=== PATIENT | female | born 1950 | race Caucasian/White ===

== ENCOUNTER → 2016-10-20 | Outpatient (CLI) | payer MEDICARE, MEDICAID ==
[~2016-10-20] VITALS: Ht 149.9 cm; Wt 47.2 kg
[~2016-10-20] MED LIST: ACET50TAOT PO; BENA25CA2 PO; BISA5TAB7 PO; CALCTAB23 PO; FOSA70TA PO; ICY16LIQ TOP; IPRASOL4 INH; LEG1TAB PO; LUNE3TAB48 PO; METO5TAB2 PO; NEXI40CA PO; NS 1,000 ML IV SCH; PEPT262S PO; PROPOFOL 200 MG/20 ML VIAL As Ordered ONE; REME30TA PO; SENN-23 PO; SIMV20TA2 PO; SING10TA32 PO; SPIR1CAP INH; SYMB16INH INH; TRAM50TA2 PO; VITA500S3 SL
--- NOTE | 2016-10-20 10:54 | ROOR ---
Patient Name: Mariah Hernandez Procedure Date: 10/20/2016 10:40 AM Date of : 1950 Age: 66 Room: M OP Gender: Female Note Status: Finalized Procedure: Upper GI endoscopy Indications: Epigastric abdominal pain, Gastroparesis, Nausea Providers: John DUNCAN MD Referring MD: Melchor Patel MD Requesting Provider: Medicines: Monitored Anesthesia Care Complications: No immediate complications. Procedure: Pre-Anesthesia Assessment: - The heart rate, respiratory rate, oxygen saturations, blood pressure, adequacy of pulmonary ventilation, and response to care were monitored throughout the procedure. The Endoscope was introduced through the mouth, and advanced to the second part of duodenum. The upper GI endoscopy was accomplished without difficulty. The patient tolerated the procedure well. Findings: Very small (insignificant) Hiatal Hernia. The esophagus was normal. The stomach was normal. The examined duodenum was normal. Impression: - Very small (insignificant) Hiatal Hernia. - Normal esophagus. - Normal stomach. - Normal examined duodenum. - No specimens collected. Recommendation: - Follow an antireflux regimen indefinitely. - Gastroparesis diet: - Eat smaller, more frequent meals throughout the day. - Low fat diet. - Liquid/soft foods are tolerated better than solid foods. - Low fiber/well cooked vegetables are tolerated better than high fiber/fibrous foods/raw vegetables. - Avoid medications that inhibit gastric/intestinal motility such as narcotic medications. John Duncan MD John DUNCAN MD 10/20/2016 10:54:20 AM This report has been signed electronically. Number of Addenda: 0 Note Initiated On: 10/20/2016 10:40 AM Estimated Blood Loss: Estimated blood loss: none.
--- NOTE | 2016-10-20 11:13 | ROOR ---
Patient Name: Mariah Hernandez Procedure Date: 10/20/2016 10:40 AM Date of : 1950 Age: 66 Room: [facility] Gender: Female Note Status: Finalized Procedure: Colonoscopy Indications: Change in bowel habits, Weight loss Providers: John DUNCAN MD Referring MD: Melchor Patel MD Requesting Provider: Medicines: Monitored Anesthesia Care Complications: No immediate complications. Procedure: Pre-Anesthesia Assessment: - The heart rate, respiratory rate, oxygen saturations, blood pressure, adequacy of pulmonary ventilation, and response to care were monitored throughout the procedure. The Colonoscope was introduced through the anus and advanced to the cecum, identified by appendiceal orifice and ileocecal valve. The colonoscopy was performed without difficulty. The patient tolerated the procedure well. The quality of the bowel preparation was good. Findings: The perianal and digital rectal examinations were normal. (EXAM: Complete, PREP:Adequate) Multiple large-mouthed diverticula were found in the sigmoid colon. Two sessile polyps were found in the distal sigmoid colon and in the proximal ascending colon. The polyps were diminutive in size. These polyps were removed with a cold snare. Resection and retrieval were complete. Internal hemorrhoids were found during retroflexion. The hemorrhoids were small. The exam was otherwise without abnormality on direct and retroflexion views. Impression: - (EXAM: Complete, PREP:Adequate) - Moderate diverticulosis in the sigmoid colon. - Two diminutive polyps in the sigmoid colon and in the ascending colon, removed with a cold snare. Resected and retrieved. - Internal hemorrhoids. - The examination was otherwise normal on direct and retroflexion views. Recommendation: - Use fiber, for example Citrucel, Fibercon, Konsyl or Metamucil. - Telephone endoscopist for pathology results in 2 weeks. - If the pathology report reveals adenomatous tissue, then repeat the colonoscopy for surveillance in 5 years. John Duncan MD John DUNCAN MD 10/20/2016 11:13:27 AM This report has been signed electronically. Number of Addenda: 0 Note Initiated On: 10/20/2016 10:40 AM Estimated Blood Loss: Estimated blood loss: none.
[2016-10-20 11:35] VITALS: BP 110/62
== END ==
LOC: M OPP 09:19
PROVIDERS: ATTEND Internal Medicine Gastroenterology
DX: R19.4 Change in bowel habit (principal); R63.4 Abnormal weight loss; K57.30 Diverticulosis of large intestine without perforation or abscess without bleeding; D12.5 Benign neoplasm of sigmoid colon; D12.2 Benign neoplasm of ascending colon; K64.8 Other hemorrhoids; R10.13 Epigastric pain; K31.84 Gastroparesis; R11.0 Nausea

== ENCOUNTER → 2019-04-12 | Outpatient (CLI) | payer MEDICARE, MEDICAID ==
[~2019-04-12] MED LIST changes: +ACET500T15 PO; -ACET50TAOT PO; +CALC1TAB60 PO; -CALCTAB23 PO; +IPRA0.00 INH; -IPRASOL4 INH; +LUNE3TAB36 PO; -LUNE3TAB48 PO; -NS 1,000 ML IV SCH; -PROPOFOL 200 MG/20 ML VIAL As Ordered ONE
--- NOTE | 2019-04-12 16:19 | REPMRS ---
Patient History The patient states she has not had a clinical breast exam in over a year. Patient is postmenopausal, has history of ovarian cancer at age 17, and is nulliparous. No known family history of cancer. No Hormone Replacement Therapy 3D TOMOSYNTHESIS WAS PERFORMED. [facility] lifetime risk for breast cancer is 3.0%. Digital Woman Screen Mammo: April 12, 2019 - Exam #: [id number] Bilateral CC and MLO view(s) were taken. Technologist: Adelina Meléndez, Technologist Prior study comparison: February 12, 2016, digital woman screen mammo performed at [facility]. February 09, 2014, digital woman screen mammo performed at [facility]. FINDINGS: The breast tissue is heterogeneously dense. This may lower the sensitivity of mammography. There has been no change in the appearance of the mammogram from the prior studies. There is a moderate amount of residual fibroglandular tissue which is fairly symmetric. There is no interval development of dominant mass, areas of architectural distortion, or clustered microcalcification typical of malignancy. Assessment: BI-RADS/ACR category 1 mammogram. Negative Mammogram. Recommendation Routine screening mammogram in 1 year (for women over age 40). This mammogram was interpreted with the aid of an FDA-approved computer-aided dectection system. Electronically Signed By: Jesus Sneed MD 04/12/19 [id number]
--- NOTE | 2019-04-20 09:17 | DEXA ---
AP SPINE L1 - L4 1.049 -1.2 0.5 LT FEMUR TOTAL 0.772 -1.9 -0.4 LT NECK 0.768 -1.9 -0.3 RT FEMUR TOTAL 0.850 -1.2 0.2 RT NECK 0.843 -1.4 0.3 TOTAL BODY TOTAL OTHER COMMENTS: There is low bone density of the spine and hips. The decreased density of the spine does represent a significant change. The decreased density of the left hip does represent a significant change. The decreased density of the right hip does represent a significant change. The density of the spine has increased 5.5% since the initial exam on 11/28/2008. The spine density has decreased 7.8% since the most recent exam on 02/12/2016. The density of the left hip has decreased 7.9% since the initial exam on 11/28/2008. The density of the left hip has decreased 3.6% since the most recent exam on 02/12/2016. The density of the right hip has decreased 5.9% since the initial exam on 11/28/2008. The density of the right hip has decreased 4.6% since the most recent exam on 02/12/2016. FOLLOW-UP: Recommendation for the next bone density exam: 2 years. GUILLE
== END ==
LOC: M WHC 14:32
PROVIDERS: ATTEND Family Medicine
DX: Z12.31 Encounter for screening mammogram for malignant neoplasm of breast (principal); M81.0 Age-related osteoporosis without current pathological fracture

== ENCOUNTER → 2019-04-17 | Outpatient (CLI) | payer MEDICARE, MEDICAID ==
[2019-04-17 11:44] LABS: BASO # 0.1 10^3/uL (0.0-0.2); BASO % 1.2 % (0.0-1.0); EOS # 0.1 10^3/uL (0.0-0.50); HEMATOCRIT 42.1 % (36.0-47.0); HEMOGLOBIN 13.3 g/dl (12.0-15.5); LYMPH # 2.7 10^3/uL (1.5-4.5); LYMPH % 39.3 % (24.0-44.0); MEAN CORPUSCULAR HEMOGLOBIN 26.5 pg (27.0-33.0); MEAN CORPUSCULAR HGB CONC 31.6 g/dl (32.0-36.5); MONO # 0.5 10^3/uL (0.0-0.8); MONO % 7.6 % (0.0-5.0); NEUTROPHILS # 3.5 10^3/uL (1.8-7.7); NEUTROPHILS % 50.6 % (36.0-66.0); PLATELET COUNT, AUTOMATED 312 10^3/uL (150-450); RED BLOOD COUNT 5.01 10^6/uL (4.00-5.40); WHITE BLOOD COUNT 6.9 10^3/uL (4.0-10.0)
[2019-04-17 12:13] LABS: ALBUMIN 3.5 GM/DL (3.2-5.2); ALT/SGPT 13 U/L (12-78); BILIRUBIN,TOTAL < 0.1 MG/DL (0.2-1.0); BLOOD UREA NITROGEN 11 MG/DL (7-18); CARBON DIOXIDE LEVEL 29 MEQ/L (21-32); CHLORIDE LEVEL 108 MEQ/L (98-107); CHOLESTEROL LEVEL 190 MG/DL (<200); CHOLESTEROL RISK RATIO 4.042 (<5); GLOMERULAR FILTRATION RATE > 60.0 (>45); GLUCOSE, FASTING 95 MG/DL (70-100); HDL CHOLESTEROL 47 MG/DL (>40); LDL CHOLESTEROL 94 MG/DL (<100); NON-HDL-C 143 MG/DL; POTASSIUM SERUM 4.5 MEQ/L (3.5-5.1); SODIUM LEVEL 143 MEQ/L (136-145); TOTAL PROTEIN 7.3 GM/DL (6.4-8.2); TRIGLYCERIDES LEVEL 247 MG/DL (<150)
[2019-04-17 12:17] LABS: TOTAL 25(OH) VITAMIN D 24.6 NG/ML (30.0-100.0)
== END ==
LOC: M LAB 11:07
PROVIDERS: ATTEND Family Medicine
DX: M81.0 Age-related osteoporosis without current pathological fracture (principal); E78.5 Hyperlipidemia, unspecified; E07.9 Disorder of thyroid, unspecified

== ENCOUNTER 2020-04-09 14:17 | Inpatient (IN) | payer MEDICARE, MEDICAID ==
[~2020-04-09] VITALS: Ht 149.9 cm; Wt 61.4 kg
[~2020-04-09 14:17] MED LIST changes: -SIMV20TA2 PO; +SIMV20TA22 PO
[2020-04-09 16:05] LABS: HEMATOCRIT 42.9 % (36.0-47.0); HEMOGLOBIN 13.4 g/dl (12.0-15.5); MEAN CORPUSCULAR HEMOGLOBIN 27.7 pg (27.0-33.0); MEAN CORPUSCULAR HGB CONC 31.2 g/dl (32.0-36.5); MEAN CORPUSCULAR VOLUME 88.6 fl (80.0-96.0); PLATELET COUNT, AUTOMATED 266 10^3/uL (150-450); RED BLOOD COUNT 4.84 10^6/uL (4.00-5.40); WHITE BLOOD COUNT 8.1 10^3/uL (4.0-10.0)
[2020-04-09 16:43] LABS: ACETAMINOPHEN LEVEL < 2.0 UG/ML (10.0-30.0); ALBUMIN 3.9 GM/DL (3.2-5.2); ALT/SGPT 42 U/L (12-78); BILIRUBIN,DIRECT < 0.1 MG/DL (0.0-0.2); BILIRUBIN,TOTAL 0.2 MG/DL (0.2-1.0); BLOOD UREA NITROGEN 9 MG/DL (7-18); CALCIUM LEVEL 9.6 MG/DL (8.8-10.2); CARBON DIOXIDE LEVEL 23 MEQ/L (21-32); CHLORIDE LEVEL 109 MEQ/L (98-107); CREATININE FOR GFR 0.97 MG/DL (0.55-1.30); ETHYL ALCOHOL (ETHANOL) 0.004 % (0.000-0.010); GLOMERULAR FILTRATION RATE > 60.0 (>39); GLUCOSE, FASTING 100 MG/DL (70-100); POTASSIUM SERUM 4.5 MEQ/L (3.5-5.1); SALICYLATE LEVEL < 1.7 MG/DL (5.0-30.0); SODIUM LEVEL 142 MEQ/L (136-145); TOTAL PROTEIN 7.5 GM/DL (6.4-8.2)
[2020-04-09 19:29] LABS: AMPHETAMINES LEVEL URINE NEGATIVE (NEGATIVE); BARBITURATES URINE NEGATIVE (NEGATIVE); BENZODIAZEPINES URINE NEGATIVE (NEGATIVE); CANNABINOIDS URINE NEGATIVE (NEGATIVE); COCAINE METABOLITE URINE NEGATIVE (NEGATIVE); METHADONE URINE NEGATIVE (NEGATIVE); OPIATES URINE NEGATIVE (NEGATIVE); PHENCYCLIDINE URINE NEGATIVE (NEGATIVE)
[2020-04-09] MEDS ORDERED: ACET1TAB55 PO (20:58)
[2020-04-09] MEDS ORDERED: MIRTAZAPINE 7.5MG PER 1/2 TABLET PO SCH (21:00)
[2020-04-09] MEDS ORDERED: traMADol 50 MG TAB PO ONE (21:15)
[2020-04-09 21:29] LABS: AMORPHOUS SEDIMENT LARGE (NEGATIVE); APPEARANCE, URINE TURBID (CLEAR); BACTERIA, URINE AUTO NEGATIVE (NEGATIVE); BILIRUBIN, URINE AUTO NEGATIVE (NEGATIVE); BLOOD, URINE BLOOD NEGATIVE (NEGATIVE); COLOR, URINE YELLOW (YELLOW); GLUCOSE, URINE (UA) AUTO NEGATIVE (NEGATIVE); KETONE, URINE AUTO NEGATIVE (NEGATIVE); LEUKOCYTE ESTERASE, URINE AUTO 3+ (NEGATIVE); MUCUS, URINE LARGE (NEGATIVE); NITRITE, URINE AUTO NEGATIVE (NEGATIVE); PROTEIN, URINE AUTO NEGATIVE (NEGATIVE); RBC, URINE AUTO 0 /HPF (0-3); SPECIFIC GRAVITY URINE AUTO 1.025 (1.002-1.035); SQUAMOUS EPITHELIAL CELL UR AU 0 /HPF (0-6); UROBILINOGEN, URINE AUTO 0.2 mg/dL (0.0-2.0); WBC, URINE AUTO 20 /HPF (0-3)
[2020-04-09] MEDS ORDERED: CIPROFLOXACIN 500MG TABLET PO ONE (21:45)
[2020-04-09] MEDS ORDERED: ICY1CRE EXT (22:36)
[2020-04-09] MEDS ORDERED: ACET650T15 PO (22:36)
[2020-04-09] MEDS ORDERED: [UNRECOGNIZED DRUG - CODE] PO (22:36)
[2020-04-09] MEDS ORDERED: AMIT8CAP4 PO (22:36)
[2020-04-09] MEDS ORDERED: DIPH25CA32 PO (22:36)
[2020-04-09] MEDS ORDERED: MIRT1TAB PO (22:36)
[2020-04-09] MEDS ORDERED: CALCD50TA PO (22:36)
[2020-04-10] MEDS ORDERED: MOM 30ML SUSPENSION UDC PO PRN (00:45)
[2020-04-10] MEDS ORDERED: PINK BISMUTH SUSP 524MG/30ML ORAL SYRINGE PO PRN (01:00)
[2020-04-10] MEDS ORDERED: IPRATROPIUM 0.5MG/ALBUTEROL 2.5MG INH SOL UD 3ML (DUONEB) INH PRN (01:00)
[2020-04-10] MEDS ORDERED: diphenhydrAMINE 25MG CAP PO PRN (01:00)
[2020-04-10] MEDS ORDERED: ANALGESIC BALM CRM 120 GM TOP PRN (01:00)
[2020-04-10] MEDS ORDERED: SENOKOT S TAB PO PRN (01:00)
[2020-04-10] MEDS: traMADol 50 MG TAB PO SCH ×3 (02:00→20:15)
[2020-04-10] MEDS: SIMVASTATIN 20 MG TAB PO SCH ×2 (02:00→20:16)
[2020-04-10] MEDS: METOCLOPRAMIDE 5 MG TAB PO SCH ×3 (02:00→20:15)
[2020-04-10] MEDS: MONTELUKAST 10 MG TAB PO SCH ×2 (02:00→20:15)
[2020-04-10] MEDS: SYMBICORT 160/4.5MCG INHALER 6GM INH SCH ×3 (03:00→20:12)
[2020-04-10 03:31] VITALS: BP 144/78
[2020-04-10] MEDS ORDERED: LORazepam 0.5 MG TAB PO PRN (03:45)
[2020-04-10] MEDS: TIOTROPIUM INHALER/CAPSULE (SPIRIVA) INH SCH (08:43)
[2020-04-10] MEDS: CALCIUM/VITAMIN D 500 MG TAB PO SCH (08:43)
[2020-04-10] MEDS: PANTOPRAZOLE 40MG TAB (PROTONIX) PO SCH (08:44)
[2020-04-10] MEDS: CYANOCOBALAMIN 500 MCG TAB GT SCH (08:44)
[2020-04-10] MEDS: ACETAMINOPHEN 500 MG TAB PO PRN (13:20)
--- NOTE | 2020-04-10 16:01 | HPEPDOC ---
[facility] Medical History & Physical Date of Admission Apr 09, 2020 Date of Service: Apr 10, 2020 Attending Physician: TIERA CALLOWAY DO History and Physical CHIEF COMPLAINT: Psychiatric issues, suicidal ideations HISTORY OF PRESENT ILLNESS: The patient is a 69-year-old female who apparently was brought into the emergency department because she voiced suicidal ideations while on a telephone visit with her outpatient provider. She attributes her current status to the fact that they have been changing her doses of mirtazapine and Lunesta over the past 6 months or so. CODE STATUS: Full code PAST MEDICAL HISTORY: COPD with chronic nocturnal oxygen requirement GERD Vitamin D deficiency Hypercholesterolemia Insomnia Depression Migraines Remote history of ovarian cancer Delayed gastric emptying Fatty liver Chronic back pain History of seizures as a child, although she is not on any antiepileptic drugs at this time Hypertension PAST SURGICAL HISTORY: Hysterectomy with bilateral salpingo-oophorectomy Appendectomy SOCIAL HISTORY: She is a smoker, perhaps one pack will last her a few days. Does not drink alcohol. Denies any illicit drug use. FAMILY HISTORY: Mother had heart failure and dementia, age 86. Father from a farming accident at age 54 REVIEW OF SYSTEMS: Constitutional: Patient denies fevers, chills, night sweats, recent weight gain/loss. HEENT: Patient denies blurred or double vision, transient visual disturbances, postnasal drip, epistaxis, sore throat, difficulty chewing or swallowing food. Cardiovascular: Patient denies chest discomfort/pain, palpitations, exertional dyspnea, orthopnea, edema of the extremities, claudication. Respiratory: Patient denies dyspnea, wheezing, cough, hemoptysis, sputum production. Gastrointestinal: Patient denies nausea, vomiting, diarrhea, constipation, abdominal pain, melena, hematochezia, hematemesis, jaundice. Muscle skeletal: She does complain of chronic low back pain PHYSICAL EXAMINATION: General: Awake, alert. Pleasant to interact with. She does not appear to be in any acute distress at this time. HEENT: Head normocephalic atraumatic, conjunctiva are pink, sclera are nonicteric, buccal mucosa is pink and moist with no lesions in the oropharynx. Hearing is grossly intact to conversation. Respiratory: Clear to auscultation bilaterally with no wheezes, rales, or rhonc hi. Cardiovascular: Regular rate and rhythm, with no rubs, gallops, or murmur. Abdomen: Soft, nontender, nondistended, no hepatosplenomegaly appreciated. Bowel sounds present. Extremities: 2+ pulses in the radial and dorsalis pedis bilaterally. No evidence of clubbing or cyanosis. ASSESSMENT/PLAN: Psychiatric issues/suicidal ideations -Recommendations as dictated by her psychiatric providers COPD -Continue with home dose of Symbicort, albuterol nebulizers as needed for shortness of breath, Singulair GERD - Continue home dose of Esomeprazole Constipation - Continue senna-S on an as-needed basis Hypercholesterolemia - Continue home dose of simvastatin Chronic back pain -Continue home dose of tramadol Delayed gastric emptying -Continue home dose of metoclopramide Vital Signs Vital Signs Date Time Temp Pulse Resp B/P (MAP) Pulse Ox O2 Delivery O2 Flow Rate FiO2 04/10/20 08:44 18 Room Air 04/10/20 03:31 96.8 87 144/78 (100) 98 Home Medications Scheduled Acetaminophen (Acetaminophen ER) 650 Mg Tablet.er, 325 MG PO BID Budesonide/Formoterol (Symbicort 160-4.5 Mcg Inhaler) 60 Puff/Inhaler Aers, 2 PUFF INH BID Calcium/Vitamin D (Calcium 500-Vit D3 200 Tablet) 1 Each Tablet, 500 MG PO DAILY Esomeprazole Magnesium (Nexium) 40 Mg Cap, 40 MG PO DAILY Lubiprostone (Amitiza) 8 Mcg Capsule, 8 MCG PO BID Metoclopramide HCl (Metoclopramide HCl) 5 Mg Tab, 5 MG PO BID Mirtazapine (Mirtazapine) 7.5 Mg Tablet, 7.5 MG PO QHS Montelukast Sodium (Singulair) 10 Mg Tab, 10 MG PO QHS Simvastatin (Simvastatin) 20 Mg Tab, 20 MG PO QHS Tramadol HCl (Tramadol HCl) 50 Mg Tab, 100 MG PO BID Scheduled PRN Acetaminophen/Pamabrom (Cramp Tablet) 1 Each Tablet, 2 TAB PO Q4H PRN for CRAMPS Diphenhydramine HCl (Diphenhydramine HCl) 25 Mg Capsule, 25 MG PO BID PRN for ALLERGIES Ipratropium/Albuterol Sulfate (Iprat-Albut 0.5-3(2.5) mg/3 ml) 1 Vanita Vanita, 3 ML INH TID PRN for SHORTNESS OF BREATH Lidocaine HCl/Menthol (Icy Hot 4%-1% Cream) 76.5 Gm Cream..g., 1 DOSE EXT QID PRN for BACK PAIN USES ON UPPER AND/OR LOWER BACK Sennosides/Docusate Sodium (Senna-S Tablet) 1 Tab Tab, 1 TAB PO BID PRN for CONSTIPATION Allergies Coded Allergies: Penicillins (Verified Allergy, Unknown, 04/09/20) Sulfa (Sulfonamide Antibiotics) (Verified Allergy, Unknown, 04/09/20) amitriptyline (Verified Allergy, Unknown, 04/09/20) erythromycin base (Verified Allergy, Unknown, 04/09/20) nefazodone (Verified Allergy, Unknown, 04/09/20) pseudoephedrine (Verified Allergy, Unknown, 04/09/20) triprolidine (Verified Allergy, Unknown, 04/09/20) A-FIB/CHADSVASC A-FIB History Current/History of A-Fib/PAF?: No Current PO Anticoag Therapy: No TIERA CALLOWAY DO Apr 10, 2020 16:00
[2020-04-10 16:31] VITALS: BP 105/50
--- NOTE | 2020-04-10 19:43 | MHHPEPDOC ---
General Legal Status: 9.13 Chief Complaint ". 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 Approximately 10 years ago she began to suffer from depression and sleeping problems and at that point was placed on Lunesta and Remeron--- she states she did fairly well on these 2 medications but then this year in January her provider discontinued the Lunesta because of her age and the possibility it might affect her memory capacity--- she states that ever since the Lunesta was discontinued she set up for a difficult time with an increased depression, difficulty eating, decreased sleep, mood swings, increased anger and panic attacks Significant and her background was the fact that the age of 19 she was diagnosed with ovarian cancer and had hysterectomy and treatment but has been cancer free ever since She has no previous psychiatric admissions She has no history of any substance abuse She has no history of any suicidality We talked about the various options with regard to her sleep and decided at least initially we would use Ativan 1 mg at bedtime In the past she also has been on venlafaxine 225 mg as an antidepressant which she did fairly well with but was discontinued when she was started on the tramadol One consideration that we discussed is the initiation of an antidepressant such as pristiq which could be safely used with her current medications MENTAL STATUS EXAM Level of consciousness--patient was alert and oriented to time place person Appearance-normal posture, normal dress, no prominent physical abnormalities, alert, cooperative Behavior--like to good, no psychomotor agitation or retardation, no abnormal movements, no tremor Speech--normal rate and rhythm--normal volume Mood--euthymic Affect--normal range and consistent with mood--stable Thought processes--logical and linear , goal directed and coherent--no thought blocking or flight of ideas, no loose associations, no tangential thinking, no word salad, no thought blocking, no circumstantiality Thought content--no ideas of reference no auditory or visual hallucinations, no delusional thinking, no thoughts of derealization or depersonalization, no obsessive thinking, no expressed phobias, Cognition--patient was alert and able to focus-sustained appropriate mental attention-memory immediate and short-term memory intact-abstract thinking present, Insight---fair Judgment or the ability to anticipate consequences of behavior intact Patient denied any suicidal ideation or impulses Patient denied any homicidal impulses or ideation With this in mind we will start the Ativan and the antidepressant pristiq We will also decrease the Remeron down to 7.5 mg per day I will see her again tomorrow Psychiatric Review of Systems Depression (2 or more weeks): depressed mood, anhedonia, insomnia/hypersomnia, difficulty concentrating Anxiety: gen/non-specific anxiety, situational anxiety, stressor related anxiety Past Psychiatric History Previous Psychiatric Diagnosis: . Previous Psychiatric Admissions: . Suicide Attempts: . Psychiatric Follow-up: . Psychiatric medications: . Past Medical History Surgeries: Yes (hysterectomy) Social History Childhood: . Abuse/Trauma:. Current Living Situation: . Education: . Employment: . Social Support: . Legal: . Marital: . A-FIB/CHADSVASC A-FIB History Current/History of A-Fib/PAF?: No Current PO Anticoag Therapy: No Age/Risk Factor Scoring CHADSVASC: CHADSVASC Response (Comments) Value Age Risk Factor Age 65-74 years old 1 Gender Risk Factor Female 1 Hx of CHF No 0 Hx of HTN No 0 Hx of Stroke/TIA/or VTE No 0 Hx of Diabetes No 0 Hx of Vascular Disease No 0 Total 2 Initial Treatment Plan 1. Patient was admitted on a [9.39] status. 2. Complete history was obtained. 3. With patients permission, family will be contacted and database will be e xpanded. 4. Patients medication regimen will be reviewed and changed accordingly. 5. Patient will be provided with protected environment. 6. Patient will be treated with individual, group, and milieu therapies. 7. Patient will receive supportive psych-education. 8. Discharge planning will commence immediately. 9. Outpatient follow-up treatment will be strongly recommended. 10. The initial treatment plan will focus initially on: * Depression. * Risk for suicide. ESTIMATED LENGTH OF STAY: - DAYS. TIME SPENT COUNSELING AND COORDINATING INITIAL CARE: minutes. Vital Signs Vital Signs Date Time Temp Pulse Resp B/P (MAP) Pulse Ox O2 Delivery O2 Flow Rate FiO2 04/10/20 16:31 99.1 92 18 105/50 (68) 04/10/20 08:44 Room Air 04/10/20 03:31 98 Medications Scheduled Acetaminophen (Acetaminophen ER) 650 Mg Tablet.er, 325 MG PO BID, (Reported) Budesonide/Formoterol (Symbicort 160-4.5 Mcg Inhaler) 60 Puff/Inhaler Aers, 2 PUFF INH BID, (Reported) Calcium/Vitamin D (Calcium 500-Vit D3 200 Tablet) 1 Each Tablet, 500 MG PO DAILY, (Reported) Esomeprazole Magnesium (Nexium) 40 Mg Cap, 40 MG PO DAILY, (Reported) Lubiprostone (Amitiza) 8 Mcg Capsule, 8 MCG PO BID, (Reported) Metoclopramide HCl (Metoclopramide HCl) 5 Mg Tab, 5 MG PO BID, (Reported) Mirtazapine (Mirtazapine) 7.5 Mg Tablet, 7.5 MG PO QHS, (Reported) Montelukast Sodium (Singulair) 10 Mg Tab, 10 MG PO QHS, (Reported) Simvastatin (Simvastatin) 20 Mg Tab, 20 MG PO QHS, (Reported) Tramadol HCl (Tramadol HCl) 50 Mg Tab, 100 MG PO BID, (Reported) Scheduled PRN Acetaminophen/Pamabrom (Cramp Tablet) 1 Each Tablet, 2 TAB PO Q4H PRN for CRAMP S, (Reported) Diphenhydramine HCl (Diphenhydramine HCl) 25 Mg Capsule, 25 MG PO BID PRN for ALLERGIES, (Reported) Ipratropium/Albuterol Sulfate (Iprat-Albut 0.5-3(2.5) mg/3 ml) 1 Vanita Vanita, 3 ML INH TID PRN for SHORTNESS OF BREATH, (Reported) Lidocaine HCl/Menthol (Icy Hot 4%-1% Cream) 76.5 Gm Cream..g., 1 DOSE EXT QID PRN for BACK PAIN, (Reported) USES ON UPPER AND/OR LOWER BACK Sennosides/Docusate Sodium (Senna-S Tablet) 1 Tab Tab, 1 TAB PO BID PRN for CONSTIPATION, (Reported) Allergies Coded Allergies: peanut (Verified Allergy, Severe, anaphylaxis, 04/12/20) Penicillins (Verified Allergy, Unknown, 04/09/20) Sulfa (Sulfonamide Antibiotics) (Verified Allergy, Unknown, 04/09/20) erythromycin base (Verified Allergy, Unknown, 04/09/20) nefazodone (Verified Allergy, Unknown, 04/09/20) pseudoephedrine (Verified Allergy, Unknown, 04/09/20) triprolidine (Verified Allergy, Unknown, 04/09/20) amitriptyline (Verified Adverse Reaction, Intermediate, SEIZURE, BLACKED OUT, 04/12/20) Angel Pfeiffer MD Apr 10, 2020 19:42
[2020-04-10] MEDS: MIRTAZAPINE 7.5MG PER 1/2 TABLET PO SCH (20:15)
[2020-04-10] MEDS: LORazepam 1 MG TAB PO SCH (20:15)
[2020-04-11 06:21] VITALS: BP 113/53
[2020-04-11] MEDS ORDERED: PNEUMOCOCCAL VACCINE 0.5ML SYRINGE (PNEUMOVAX 23) IM ONE (09:00)
[2020-04-11] MEDS ORDERED: DESVENLAFAXINE ER 50 MG TABLET (PRISTIQ) PO SCH (09:00)
[2020-04-11] MEDS: TIOTROPIUM INHALER/CAPSULE (SPIRIVA) INH SCH (09:24)
[2020-04-11] MEDS: SYMBICORT 160/4.5MCG INHALER 6GM INH SCH ×2 (09:24→20:03)
[2020-04-11] MEDS: CALCIUM/VITAMIN D 500 MG TAB PO SCH (09:27)
[2020-04-11] MEDS: METOCLOPRAMIDE 5 MG TAB PO SCH ×2 (09:27→20:05)
[2020-04-11] MEDS: CYANOCOBALAMIN 500 MCG TAB GT SCH (09:27)
[2020-04-11] MEDS: PANTOPRAZOLE 40MG TAB (PROTONIX) PO SCH (09:27)
[2020-04-11] MEDS: traMADol 50 MG TAB PO SCH ×2 (09:27→20:05)
[2020-04-11 13:55] VITALS: BP 132/68
--- NOTE | 2020-04-11 14:44 | IPNPDOC ---
Text Note Date of Service The patient was seen on 04/11/20. NOTE called by nurse as patient fell. Ethan tells me that she was standing at the end of the bed and sudden she lost strength of her legs and she fell to the floor on her her right side hitting her right forehead, right elbow, hip and right knee. She denied any loss of consciousness. Staff helped her up and she was able to walk to the chair. No bruising noted at the forehead, knee or hip, No swelling. There is a small laceration at the right elbow which has stopped bleeding. No other injury noted. Will get CT head without contrast. VS,Fishbone, I+O VS, Fishbone, I+O Vital Signs Date Time Temp Pulse Resp B/P (MAP) Pulse Ox O2 Delivery O2 Flow Rate FiO2 04/11/20 13:55 97.0 77 12 132/68 (89) 96 Room Air CLARKE ACOSTA MD Apr 11, 2020 14:44
[2020-04-11 16:49] VITALS: BP 130/74
--- NOTE | 2020-04-11 17:08 | REP ---
CT BRAIN WITHOUT CONTRAST: HISTORY: Fall striking head. Comparison head CT study, September 17, 2016. CT FINDINGS: Preliminary digital dog races manager radiograph is unremarkable. There is some vascular calcification in the distal internal carotid arteries. Bone window settings demonstrate an intact bony calvarium. No skull fractures seen. There is no significant scalp hematoma. No intraorbital abnormality is seen. On soft tissue window settings, the lateral, third, and fourth ventricles are normal in position and appearance. There is minimal localized volume loss and small vessel atherosclerotic change. There is no evidence of intracranial hemorrhage. No extra-axial fluid collection is seen. No mass or midline shift is seen. No evidence of infarct. IMPRESSION: No evidence of skull fracture or acute intracranial injury. Mild vascular calcification and generalized volume loss. Electronically Signed by Saeid Huggins MD 04/22/2020 07:50 A
--- NOTE | 2020-04-11 18:11 | MHIPNPDOC ---
[facility] Progress Note Progress Note DATE OF SERVICE: 04/11/20 Mariah was seen in medical psychotherapy today Patient was seen for a medical psychotherapy session in which the patient's citlali tment plan was reviewed, mental status exam performed, vital signs reviewed, current medical conditions reviewed, and treatment goals were reviewed This visit was performed as a telehealth visit utilizing an interactive a/v telecommunications system or telephone that permitted real time communication between myself and the patient--permission/consent from patient/guardian was obt ained The patient is 69 years of age and suffers from anxiety and depressive condition along with chronic insomnia--patient feels that since her Lunesta which she had been on for years was discontinued her condition has deteriorated and she is become very focused on not being able to sleep Since she came into the hospital she was seen by myself for an psychiatric evaluation yesterday and was diagnosed as having a depressive condition--at that point I ordered Ativan for sleep and started pristiq for depression Earlier today however the patient had a incident in which she was standing next to her bed and suddenly fell--she was medically assessed and monitored--- she did not report either lightheadedness or dizziness during the incident Because of the start of these medications namely antidepressant it must be taken into consideration that she needs to more slowly acclimated to the new medications--in that regard the pristiq was discontinued and in its place nortriptyline was started at a dose of 10 mg 3 times a day She will continue with the Ativan at bedtime MENTAL STATUS EXAM Level of consciousness--patient was alert and oriented to time place person Appearance-normal posture, normal dress, no prominent physical abnormalities, alert, cooperative Behavior--like to good, no psychomotor agitation or retardation, no abnormal movements, no tremor Speech--normal rate and rhythm--normal volume Mood--euthymic Affect--normal range and consistent with mood--stable Thought processes--logical and linear , goal directed and coherent--no thought blocking or flight of ideas, no loose associations, no tangential thinking, no word salad, no thought blocking, no circumstantiality Thought content--no ideas of reference no auditory or visual hallucinations, no delusional thinking, no thoughts of derealization or depersonalization, no obsessive thinking, no expressed phobias, Cognition--patient was alert and able to focus-sustained appropriate mental attention-memory immediate and short-term memory intact-abstract thinking present, Insight---fair Judgment or the ability to anticipate consequences of behavior intact Patient denied any suicidal ideation or impulses Patient denied any homicidal impulses or ideation Vital Signs Vital Signs Date Time Temp Pulse Resp B/P (MAP) Pulse Ox O2 Delivery O2 Flow Rate FiO2 04/11/20 16:49 98.3 85 16 130/74 (92) 04/11/20 13:55 96 Room Air Current Medications Current Medications Medications (Trade) Dose Ordered Sig/Speedy Route PRN Reason Start Time Stop Time Status Last Admin Dose Admin Acetaminophen (Tylenol Tab) 1,000 mg Q6HP PRN PO PAIN 04/10/20 01:00 04/10/20 13:20 Albuterol/ Ipratropium (Duoneb (Ipr 0.5mg/Alb 2.5mg)) 3 ml TID PRN INH SHORTNESS OF BREATH 04/10/20 01:00 Bismuth Subsalicylate (Pepto Bismol) 15 ml Q6HP PRN PO GI UPSET 04/10/20 01:00 Budesonide/ Formoterol Fumarate (Symbicort 160/ 4.5mcg) 2 puff RBID INH 04/09/20 20:00 04/11/20 09:24 Calcium/Vitamin D (Oscal D) 500 mg DAILY PO 04/10/20 09:00 04/11/20 09:27 Cyanocobalamin (Vitamin B12) 500 mcg DAILY GT 04/10/20 09:00 04/11/20 09:27 Desvenlafaxine Succinate (Pristiq) 25 mg QAM PO 04/12/20 09:00 04/11/20 18:03 DC Desvenlafaxine Succinate (Pristiq) 50 mg QAM PO 04/11/20 09:00 04/11/20 16:43 DC 04/11/20 09:26 Diphenhydramine HCl (Benadryl) 25 mg BID PRN PO ALLERGIES 04/10/20 01:00 Home Med (Med Rec Complete!) ASDIRECTED XX 04/09/20 22:45 04/09/20 22:38 DC Lorazepam (Ativan) 0.5 mg Q4HP PRN PO ANXIETY 04/10/20 03:45 04/10/20 03:45 Lorazepam (Ativan) 1 mg QHS PO 04/10/20 21:00 04/10/20 20:15 Magnesium Hydroxide (Milk Of Magnesia) 30 ml DAILYPRN PRN PO CONSTIPATION 04/10/20 00:45 Menthol/Methyl Salicylate (Bengay Cream) QHSP PRN TOP PAIN 04/10/20 01:00 Metoclopramide HCl (Reglan) 5 mg BID PO 04/09/20 21:00 04/11/20 09:27 Mirtazapine (Remeron) 7.5 mg QHS PO 04/10/20 21:00 04/10/20 20:15 Mirtazapine (Remeron) 15 mg QHS PO 04/09/20 21:00 04/10/20 19:45 DC Miscellaneous (Unresolved Clarification Entry) SEE LABEL COMMENTS DAILY XX 04/11/20 09:00 04/11/20 18:04 DC Montelukast Sodium (Singulair) 10 mg QHS PO 04/09/20 21:00 04/10/20 20:15 Pantoprazole Sodium (Protonix) 40 mg DAILY PO 04/10/20 09:00 04/11/20 09:27 Senna/Docusate Sodium (Senokot S) 1 tab BID PRN PO CONSTIPATION 04/10/20 01:00 Simvastatin (Zocor) 20 mg QHS PO 04/09/20 21:00 04/10/20 20:16 Tiotropium [place] (Spiriva Handihaler) 1 inhalation DAILY@08 INH 04/10/20 08:00 04/11/20 09:24 Tramadol HCl (Ultram) 100 mg BID PO 04/09/20 21:00 04/12/20 20:59 04/11/20 09:27 Allergies Coded Allergies: Penicillins (Verified Allergy, Unknown, 04/09/20) Sulfa (Sulfonamide Antibiotics) (Verified Allergy, Unknown, 04/09/20) amitriptyline (Verified Allergy, Unknown, 04/09/20) erythromycin base (Verified Allergy, Unknown, 04/09/20) nefazodone (Verified Allergy, Unknown, 04/09/20) pseudoephedrine (Verified Allergy, Unknown, 04/09/20) triprolidine (Verified Allergy, Unknown, 04/09/20) Angel Pfeiffer MD Apr 11, 2020 18:11
[2020-04-11] MEDS: MONTELUKAST 10 MG TAB PO SCH (20:04)
[2020-04-11] MEDS: LORazepam 1 MG TAB PO SCH (20:06)
[2020-04-11] MEDS: MIRTAZAPINE 7.5MG PER 1/2 TABLET PO SCH (20:06)
[2020-04-11] MEDS: SIMVASTATIN 20 MG TAB PO SCH (20:06)
[2020-04-11] MEDS ORDERED: NORTRIPTYLINE 10 MG CAP PO SCH (21:00)
[2020-04-12 06:33] VITALS: BP 136/73
[2020-04-12] MEDS: TIOTROPIUM INHALER/CAPSULE (SPIRIVA) INH SCH (08:04)
[2020-04-12] MEDS: PANTOPRAZOLE 40MG TAB (PROTONIX) PO SCH (08:05)
[2020-04-12] MEDS: FLUoxetine 10 MG CAP PO SCH (08:05)
[2020-04-12] MEDS: CYANOCOBALAMIN 500 MCG TAB GT SCH (08:05)
[2020-04-12] MEDS: CALCIUM/VITAMIN D 500 MG TAB PO SCH (08:05)
[2020-04-12] MEDS: METOCLOPRAMIDE 5 MG TAB PO SCH ×2 (08:05→19:58)
[2020-04-12] MEDS: traMADol 50 MG TAB PO SCH ×2 (08:06→19:57)
[2020-04-12] MEDS: SYMBICORT 160/4.5MCG INHALER 6GM INH SCH ×2 (08:07→19:58)
[2020-04-12] MEDS ORDERED: DESVENLAFAXINE ER 50 MG TABLET (PRISTIQ) PO SCH (09:00)
--- NOTE | 2020-04-12 14:27 | MHIPNPDOC ---
[facility] Progress Note Progress Note DATE OF SERVICE: 04/12/20 Mariah was seen for medical psychotherapy 20 minutes was spent talking to the patient and documenting Patient was seen for a medical psychotherapy session in which the patient's treatment plan was reviewed, mental status exam performed, vital signs revie wed, current medical conditions reviewed, and treatment goals were reviewed This visit was performed as a telehealth visit utilizing an interactive a/v telecommunications system or telephone that permitted real time communication between myself and the patient--permission/consent from patient/guardian was obtained The patient continues to make slow but steady progress feeling considerably less anxious and sleeping better We did start fluoxetine yesterday at a dose of 10 mg--no side effects reported to the medication Additionally she remains on Ativan 1 mg at night to sleep along with mirtazapine 7.5 mg also at bedtime Her treatment plan now includes increasing the fluoxetine to 20 mg per day on April 14 with a possible discharge date Wednesday or Wednesday of next week MENTAL STATUS EXAM Level of consciousness--patient was alert and oriented to time place person Appearance-normal posture, normal dress, no prominent physical abnormalities, alert, cooperative Behavior--like to good, no psychomotor agitation or retardation, no abnormal movements, no tremor Speech--normal rate and rhythm--normal volume Mood--euthymic Affect--normal range and consistent with mood--stable Thought processes--logical and linear , goal directed and coherent--no thought blocking or flight of ideas, no loose associations, no tangential thinking, no word salad, no thought blocking, no circumstantiality Thought content--no ideas of reference no auditory or visual hallucinations, no delusional thinking, no thoughts of derealization or depersonalization, no obsessive thinking, no expressed phobias, Cognition--patient was alert and able to focus-sustained appropriate mental attention-memory immediate and short-term memory intact-abstract thinking present, Insight---fair Judgment or the ability to anticipate consequences of behavior intact Patient denied any suicidal ideation or impulses Patient denied any homicidal impulses or ideation Vital Signs Vital Signs Date Time Temp Pulse Resp B/P (MAP) Pulse Ox O2 Delivery O2 Flow Rate FiO2 04/12/20 08:06 16 04/12/20 06:33 98.6 62 136/73 (94) Room Air 04/11/20 20:05 98 Current Medications Current Medications Medications (Trade) Dose Ordered Sig/Speedy Route PRN Reason Start Time Stop Time Status Last Admin Dose Admin Acetaminophen (Tylenol Tab) 1,000 mg Q6HP PRN PO PAIN 04/10/20 01:00 04/10/20 13:20 Albuterol/ Ipratropium (Duoneb (Ipr 0.5mg/Alb 2.5mg)) 3 ml TID PRN INH SHORTNESS OF BREATH 04/10/20 01:00 Bismuth Subsalicylate (Pepto Bismol) 15 ml Q6HP PRN PO GI UPSET 04/10/20 01:00 Budesonide/ Formoterol Fumarate (Symbicort 160/ 4.5mcg) 2 puff RBID INH 04/09/20 20:00 04/12/20 08:07 Calcium/Vitamin D (Oscal D) 500 mg DAILY PO 04/10/20 09:00 04/12/20 08:05 Cyanocobalamin (Vitamin B12) 500 mcg DAILY GT 04/10/20 09:00 04/12/20 08:05 Desvenlafaxine Succinate (Pristiq) 25 mg QAM PO 04/12/20 09:00 04/11/20 18:03 DC Desvenlafaxine Succinate (Pristiq) 50 mg QAM PO 04/11/20 09:00 04/11/20 16:43 DC 04/11/20 09:26 Diphenhydramine HCl (Benadryl) 25 mg BID PRN PO ALLERGIES 04/10/20 01:00 Fluoxetine HCl (PROzac) 10 mg QAM PO 04/12/20 09:00 04/12/20 08:05 Home Med (Med Rec Complete!) ASDIRECTED XX 04/09/20 22:45 04/09/20 22:38 DC Lorazepam (Ativan) 0.5 mg Q4HP PRN PO ANXIETY 04/10/20 03:45 04/10/20 03:45 Lorazepam (Ativan) 1 mg QHS PO 04/10/20 21:00 04/11/20 20:06 Magnesium Hydroxide (Milk Of Magnesia) 30 ml DAILYPRN PRN PO CONSTIPATION 04/10/20 00:45 Menthol/Methyl Salicylate (Bengay Cream) QHSP PRN TOP PAIN 04/10/20 01:00 Metoclopramide HCl (Reglan) 5 mg BID PO 04/09/20 21:00 04/12/20 08:05 Mirtazapine (Remeron) 7.5 mg QHS PO 04/10/20 21:00 04/11/20 20:06 Mirtazapine (Remeron) 15 mg QHS PO 04/09/20 21:00 04/10/20 19:45 DC Miscellaneous (Unresolved Clarification Entry) SEE LABEL COMMENTS DAILY XX 04/11/20 09:00 04/11/20 18:04 DC Montelukast Sodium (Singulair) 10 mg QHS PO 04/09/20 21:00 04/11/20 20:04 Nortriptyline HCl (Pamelor) 10 mg TID PO 04/11/20 21:00 04/11/20 18:23 DC Pantoprazole Sodium (Protonix) 40 mg DAILY PO 04/10/20 09:00 04/12/20 08:05 Senna/Docusate Sodium (Senokot S) 1 tab BID PRN PO CONSTIPATION 04/10/20 01:00 Simvastatin (Zocor) 20 mg QHS PO 04/09/20 21:00 04/11/20 20:06 Tiotropium Pep (Spiriva Handihaler) 1 inhalation DAILY@08 INH 04/10/20 08:00 04/12/20 08:04 Tramadol HCl (Ultram) 100 mg BID PO 04/09/20 21:00 04/12/20 20:59 04/12/20 08:06 Allergies Coded Allergies: peanut (Verified Allergy, Severe, anaphylaxis, 04/12/20) Penicillins (Verified Allergy, Unknown, 04/09/20) Sulfa (Sulfonamide Antibiotics) (Verified Allergy, Unknown, 04/09/20) erythromycin base (Verified Allergy, Unknown, 04/09/20) nefazodone (Verified Allergy, Unknown, 04/09/20) pseudoephedrine (Verified Allergy, Unknown, 04/09/20) triprolidine (Verified Allergy, Unknown, 04/09/20) amitriptyline (Verified Adverse Reaction, Intermediate, SEIZURE, BLACKED OUT, 04/12/20) Angel Pfeiffer MD Apr 12, 2020 14:27
[2020-04-12 18:08] VITALS: BP 107/55
[2020-04-12] MEDS: MIRTAZAPINE 7.5MG PER 1/2 TABLET PO SCH (19:58)
[2020-04-12] MEDS: MONTELUKAST 10 MG TAB PO SCH (19:58)
[2020-04-12] MEDS: SIMVASTATIN 20 MG TAB PO SCH (19:58)
[2020-04-12] MEDS: LORazepam 1 MG TAB PO SCH (19:58)
[2020-04-13 06:42] VITALS: BP 105/68
[2020-04-13] MEDS: FLUoxetine 10 MG CAP PO SCH (08:11)
[2020-04-13] MEDS: CYANOCOBALAMIN 500 MCG TAB GT SCH (08:11)
[2020-04-13] MEDS: PANTOPRAZOLE 40MG TAB (PROTONIX) PO SCH (08:11)
[2020-04-13] MEDS: CALCIUM/VITAMIN D 500 MG TAB PO SCH (08:11)
[2020-04-13] MEDS: ACETAMINOPHEN 500 MG TAB PO PRN (08:11)
[2020-04-13] MEDS: METOCLOPRAMIDE 5 MG TAB PO SCH ×2 (08:11→20:38)
[2020-04-13] MEDS: TIOTROPIUM INHALER/CAPSULE (SPIRIVA) INH SCH (08:11)
[2020-04-13] MEDS: SYMBICORT 160/4.5MCG INHALER 6GM INH SCH ×2 (08:11→20:37)
[2020-04-13] MEDS: traMADol 50 MG TAB PO SCH ×2 (12:01→20:38)
[2020-04-13 15:46] VITALS: BP 119/55
[2020-04-13] MEDS: MIRTAZAPINE 7.5MG PER 1/2 TABLET PO SCH (20:37)
[2020-04-13] MEDS: LORazepam 1 MG TAB PO SCH (20:38)
[2020-04-13] MEDS: SIMVASTATIN 20 MG TAB PO SCH (20:40)
[2020-04-13] MEDS: MONTELUKAST 10 MG TAB PO SCH (22:21)
[2020-04-14 06:36] VITALS: BP 135/74
[2020-04-14] MEDS: CALCIUM/VITAMIN D 500 MG TAB PO SCH (08:06)
[2020-04-14] MEDS: FLUoxetine 20 MG CAP PO SCH (08:06)
[2020-04-14] MEDS: SYMBICORT 160/4.5MCG INHALER 6GM INH SCH ×2 (08:06→20:43)
[2020-04-14] MEDS: CYANOCOBALAMIN 500 MCG TAB GT SCH (08:06)
[2020-04-14] MEDS: METOCLOPRAMIDE 5 MG TAB PO SCH ×2 (08:06→20:44)
[2020-04-14] MEDS: TIOTROPIUM INHALER/CAPSULE (SPIRIVA) INH SCH (08:07)
[2020-04-14] MEDS: traMADol 50 MG TAB PO SCH ×2 (08:07→20:44)
[2020-04-14] MEDS: PANTOPRAZOLE 40MG TAB (PROTONIX) PO SCH (08:07)
--- NOTE | 2020-04-14 09:14 | MHIPN ---
DATE: 04/13/2020 The patient today tells me, "I'm doing pretty good." She says she has no depression and her anxiety is better. She also tells me that she slept good. MENTAL STATUS EXAMINATION: She is alert and oriented times three. She is pleasant and cooperative. Verbally spontaneous. There is no formal thought disorder noted. She says her mood is "pretty good." Affect is full range and appropriate. She is not psychotic or suicidal or homicidal. Concentration is fair. Memory intact. Insight and judgment fair. DIAGNOSIS: Major depressive disorder. TREATMENT PLAN: At this point, we will continue to monitor the patient for further clinical response from her medication.
[2020-04-14 15:57] VITALS: BP 116/59
[2020-04-14] MEDS: LORazepam 1 MG TAB PO SCH (20:43)
[2020-04-14] MEDS: MONTELUKAST 10 MG TAB PO SCH (20:44)
[2020-04-14] MEDS: SIMVASTATIN 20 MG TAB PO SCH (20:44)
[2020-04-14] MEDS: MIRTAZAPINE 7.5MG PER 1/2 TABLET PO SCH (20:44)
[2020-04-15 06:25] VITALS: BP 127/71
--- NOTE | 2020-04-15 07:16 | MHIPN ---
DATE OF EVALUATION: 04/14/2020 The patient is seen via telepsychiatry due to the current Coronavirus crisis. Today, the patient tells me, "I am doing pretty good". She says she slept good. She has no complaints. She says she is not feeling depressed or anxious. MENTAL STATUS EXAMINATION: She is alert and oriented times three. She is pleasant and cooperative, verbally spontaneous. There is no formal thought disorder noted. She says her mood is "good". Affect full range and appropriate. She is not psychotic, suicidal or homicidal. Concentration and memory is good. Insight and judgment fair. DIAGNOSIS: Major depressive disorder. TREATMENT PLAN: At this point, will continue to monitor the patient for continued elevation and stabilization of her mood and continued resolution of her suicidal ideations.
[2020-04-15] MEDS: SYMBICORT 160/4.5MCG INHALER 6GM INH SCH (08:08)
[2020-04-15] MEDS: TIOTROPIUM INHALER/CAPSULE (SPIRIVA) INH SCH (08:08)
[2020-04-15] MEDS: CALCIUM/VITAMIN D 500 MG TAB PO SCH (08:09)
[2020-04-15] MEDS: PANTOPRAZOLE 40MG TAB (PROTONIX) PO SCH (08:09)
[2020-04-15] MEDS: CYANOCOBALAMIN 500 MCG TAB GT SCH (08:10)
[2020-04-15] MEDS: traMADol 50 MG TAB PO SCH (08:10)
[2020-04-15] MEDS: METOCLOPRAMIDE 5 MG TAB PO SCH (08:10)
[2020-04-15] MEDS: FLUoxetine 20 MG CAP PO SCH (08:10)
[2020-04-15] MEDS ORDERED: REME15TA PO (13:37)
[2020-04-15] MEDS ORDERED: FLUO20CA22 PO (13:37)
[2020-04-15] MEDS ORDERED: ATIV1TAB7 PO (13:37)
[2020-04-15 16:27] VITALS: BP 100/56
== END 2020-04-15 16:45 | disposition home or self-care (01) | DRG 881 ==
LOC: M ED 14:17 → M ED INP 04-10 00:39 → M PSY 04-10 02:30
PROVIDERS: ADMIT Psychiatry & Neurology Psychiatry; ATTEND Psychiatry & Neurology Addiction Medicine
DX: F32.9 Major depressive disorder, single episode, unspecified (principal); J44.9 Chronic obstructive pulmonary disease, unspecified; Z99.81 Dependence on supplemental oxygen; K21.9 Gastro-esophageal reflux disease without esophagitis; E55.9 Vitamin D deficiency, unspecified; E78.00 Pure hypercholesterolemia, unspecified; G47.00 Insomnia, unspecified; G43.909 Migraine, unspecified, not intractable, without status migrainosus; K76.0 Fatty (change of) liver, not elsewhere classified; I10 Essential (primary) hypertension; K30 Functional dyspepsia; Z85.43 Personal history of malignant neoplasm of ovary; Z90.49 Acquired absence of other specified parts of digestive tract; Z90.710 Acquired absence of both cervix and uterus; F17.200 Nicotine dependence, unspecified, uncomplicated; K59.00 Constipation, unspecified; M54.9 Dorsalgia, unspecified; Z79.891 Long term (current) use of opiate analgesic; Z79.899 Other long term (current) drug therapy; Z88.0 Allergy status to penicillin; Z88.2 Allergy status to sulfonamides; Z88.8 Allergy status to other drugs, medicaments and biological substances; Z88.1 Allergy status to other antibiotic agents; S51.011A Laceration without foreign body of right elbow, initial encounter; W18.30XA Fall on same level, unspecified, initial encounter; Y92.230 Patient room in hospital as the place of occurrence of the external cause; Y99.8 Other external cause status; Y93.89 Activity, other specified; M62.81 Muscle weakness (generalized)

== ENCOUNTER → 2021-04-23 | Outpatient (CLI) | payer MEDICARE, MEDICAID ==
[~2021-04-23] MED LIST changes: +ACET1TAB55 PO; +ACET650T15 PO; +AMIT8CAP4 PO; +ATIV1TAB7 PO; +CALCD50TA PO; +DIPH25CA32 PO; +FLUO20CA22 PO; +ICY1CRE EXT; +MIRT-60 PO; +MIRT-62 PO; +MIRT1TAB PO; -REME30TA PO; +[UNRECOGNIZED DRUG - CODE] PO
[2021-04-23 11:18] LABS: HEMATOCRIT 45.6 % (36.0-47.0); HEMOGLOBIN 14.2 g/dl (12.0-15.5); MEAN CORPUSCULAR HEMOGLOBIN 27.4 pg (27.0-33.0); MEAN CORPUSCULAR HGB CONC 31.1 g/dl (32.0-36.5); PLATELET COUNT, AUTOMATED 274 10^3/uL (150-450); RED BLOOD COUNT 5.18 10^6/uL (4.00-5.40); WHITE BLOOD COUNT 7.5 10^3/uL (4.0-10.0)
[2021-04-23 12:57] LABS: ALBUMIN 4.1 GM/DL (3.2-5.2); ALT/SGPT 28 U/L (12-78); BILIRUBIN,TOTAL 0.3 MG/DL (0.2-1.0); BLOOD UREA NITROGEN 12 MG/DL (7-18); CALCIUM LEVEL 9.3 MG/DL (8.8-10.2); CARBON DIOXIDE LEVEL 20 MEQ/L (21-32); CHLORIDE LEVEL 111 MEQ/L (98-107); CHOLESTEROL LEVEL 215 MG/DL (<200); CHOLESTEROL RISK RATIO 4.479 (<5); CREATININE FOR GFR 0.96 MG/DL (0.55-1.30); GLOMERULAR FILTRATION RATE > 60.0 (>39); GLUCOSE, FASTING 98 MG/DL (70-100); HDL CHOLESTEROL 48 MG/DL (>40); LDL CHOLESTEROL 130 MG/DL (<100); NON-HDL-C 167 MG/DL; POTASSIUM SERUM 3.8 MEQ/L (3.5-5.1); SODIUM LEVEL 142 MEQ/L (136-145); TOTAL PROTEIN 7.4 GM/DL (6.4-8.2); TRIGLYCERIDES LEVEL 187 MG/DL (<150)
[2021-04-23 13:07] LABS: TOTAL T3 130.9 NG/DL (60.0-181.0)
== END ==
LOC: M LAB 10:10
PROVIDERS: ATTEND Family Medicine
DX: E07.9 Disorder of thyroid, unspecified (principal); E78.00 Pure hypercholesterolemia, unspecified

== ENCOUNTER → 2022-04-17 | Outpatient (CLI) | payer MEDICARE, MEDICAID ==
[2022-04-17 12:43] LABS: HEMATOCRIT 44.8 % (36.0-47.0); HEMOGLOBIN 14.2 g/dl (12.0-15.5); MEAN CORPUSCULAR HEMOGLOBIN 28.2 pg (27.0-33.0); MEAN CORPUSCULAR HGB CONC 31.7 g/dl (32.0-36.5); MEAN CORPUSCULAR VOLUME 88.9 fl (80.0-96.0); PLATELET COUNT, AUTOMATED 249 10^3/uL (150-450); RED BLOOD COUNT 5.04 10^6/uL (4.00-5.40); WHITE BLOOD COUNT 7.4 10^3/uL (4.0-10.0)
[2022-04-17 13:24] LABS: BILIRUBIN,TOTAL 0.5 MG/DL (0.2-1.0); CALCIUM LEVEL 9.8 MG/DL (8.8-10.2); CHOLESTEROL RISK RATIO 3.433 (<5); CREATININE FOR GFR 1.28 MG/DL (0.55-1.30); GLOMERULAR FILTRATION RATE 43.6 (>39); POTASSIUM SERUM 4.4 MEQ/L (3.5-5.1); THYROID STIMULATING HORMONE 3.19 uIU/ML (0.358-3.740); TOTAL PROTEIN 7.2 GM/DL (6.4-8.2)
[2022-04-17 13:33] LABS: TOTAL 25(OH) VITAMIN D 16.6 NG/ML (30.0-100.0)
== END ==
LOC: M WUC 10:12
PROVIDERS: ATTEND Family Medicine
DX: E78.5 Hyperlipidemia, unspecified (principal); E07.9 Disorder of thyroid, unspecified; M81.0 Age-related osteoporosis without current pathological fracture

== ENCOUNTER → 2022-05-26 | Outpatient (CLI) | payer MEDICARE, MEDICAID | LOC: M WHC 13:36 | PROVIDERS: ATTEND Family Medicine | DX: Z12.31 Encounter for screening mammogram for malignant neoplasm of breast (principal) ==

== ENCOUNTER → 2022-06-02 | Outpatient (CLI) | payer MEDICARE, MEDICAID | LOC: M RAD 12:06 | PROVIDERS: ATTEND Family Medicine | DX: R91.8 Other nonspecific abnormal finding of lung field (principal); Z12.2 Encounter for screening for malignant neoplasm of respiratory organs ==

== ENCOUNTER → 2023-11-09 | Outpatient (CLI) | payer MEDICARE, MEDICAID ==
[~2023-11-09] MED LIST changes: +ALEN70TA87 PO; +DIPH-435 PO; -DIPH25CA32 PO; -FOSA70TA PO; -LUNE3TAB36 PO; +LUNE3TAB50 PO; -MIRT-60 PO; -MIRT-62 PO; +MIRT-88 PO; +MIRT-89 PO; +MONT-5 PO; -SING10TA32 PO
[2023-11-09 11:46] LABS: BASO # 0.1 10^3/uL (0.0-0.2); BASO % 1.1 % (0.0-1.0); EOS # 0.1 10^3/uL (0.0-0.5); EOS % 1.7 % (0.0-3.0); HEMATOCRIT 41.8 % (36.0-47.0); HEMOGLOBIN 13.2 g/dl (12.0-15.5); LYMPH % 25.7 % (24.0-44.0); MEAN CORPUSCULAR HEMOGLOBIN 27.6 pg (27.0-33.0); MEAN CORPUSCULAR HGB CONC 31.6 g/dl (32.0-36.5); MEAN CORPUSCULAR VOLUME 87.4 fl (80.0-96.0); MONO # 0.5 10^3/uL (0.0-0.8); MONO % 6.6 % (2.0-8.0); NEUTROPHILS # 4.9 10^3/uL (1.5-8.5); NEUTROPHILS % 64.6 % (36.0-66.0); PLATELET COUNT, AUTOMATED 228 10^3/uL (150-450); RED BLOOD COUNT 4.78 10^6/uL (4.00-5.40); WHITE BLOOD COUNT 7.6 10^3/uL (4.0-10.0)
[2023-11-09 12:17] LABS: ALBUMIN 3.8 G/DL (3.2-5.2); ALKALINE PHOSPHATASE 95 U/L (46-116); ALT/SGPT 18 U/L (7.0-40); AST/SGOT 14 U/L (<34); BILIRUBIN,TOTAL 0.2 MG/DL (0.3-1.2); BLOOD UREA NITROGEN 12 MG/DL (9-23); CALCIUM LEVEL 9.3 MG/DL (8.3-10.6); CARBON DIOXIDE LEVEL 23 MMOL/L (20-31); CHLORIDE LEVEL 109 MMOL/L (98-107); CHOLESTEROL LEVEL 195 MG/DL (<200); CHOLESTEROL RISK RATIO 3.37 (<5); CREATININE FOR GFR 0.93 MG/DL (0.55-1.30); GLOMERULAR FILTRATION RATE > 60.0 (>39); GLUCOSE, FASTING 106 MG/DL (74-106); HDL CHOLESTEROL 57.8 MG/DL (>40); LDL CHOLESTEROL 102.8 MG/DL (<100); NON-HDL-C 137.2 MG/DL; POTASSIUM SERUM 3.8 MMOL/L (3.5-5.1); SODIUM LEVEL 142 MMOL/L (136-145); TOTAL PROTEIN 7.1 G/DL (5.7-8.2); TRIGLYCERIDES LEVEL 172 MG/DL (<150)
[2023-11-09 12:18] LABS: THYROID STIMULATING HORMONE 2.488 uIU/ML (0.55-4.78)
[2023-11-09 12:19] LABS: TOTAL 25(OH) VITAMIN D 30.7 NG/ML (20.0-100.0)
== END ==
LOC: M LAB 10:59
PROVIDERS: ATTEND Family Medicine
DX: E78.5 Hyperlipidemia, unspecified (principal); Z79.899 Other long term (current) drug therapy

== ENCOUNTER → 2024-01-10 | Outpatient (CLI) | payer MEDICARE, MEDICAID ==
[~2024-01-10] MED LIST changes: +MIRT-60 PO; -MIRT-89 PO
== END ==
LOC: M RAD 12:03
PROVIDERS: ATTEND Family Medicine
DX: Z87.891 Personal history of nicotine dependence (principal)

== ENCOUNTER → 2024-07-24 | Outpatient (CLI) | payer MEDICARE, MEDICAID ==
[~2024-07-24] MED LIST changes: +FLUO-365 PO; -FLUO20CA22 PO; -MIRT-60 PO; +MIRT-89 PO
== END ==
LOC: M RAD 15:23
PROVIDERS: ATTEND Family Medicine
DX: R91.1 Solitary pulmonary nodule (principal)

== ENCOUNTER → 2025-02-26 | Outpatient (CLI) | payer MEDICARE, MEDICAID ==
[2025-02-26 11:40] LABS: BASO # 0.1 10^3/uL (0.0-0.2); BASO % 0.8 % (0.0-1.0); EOS # 0.1 10^3/uL (0.0-0.5); EOS % 1.9 % (0.0-3.0); HEMATOCRIT 39.5 % (36.0-47.0); HEMOGLOBIN 12.4 g/dl (12.0-15.5); LYMPH # 2.4 10^3/uL (1.5-5.0); LYMPH % 32.3 % (24.0-44.0); MEAN CORPUSCULAR HEMOGLOBIN 27.9 pg (27.0-33.0); MEAN CORPUSCULAR HGB CONC 31.4 g/dl (32.0-36.5); MONO # 0.5 10^3/uL (0.0-0.8); MONO % 6.7 % (2.0-8.0); NEUTROPHILS # 4.3 10^3/uL (1.5-8.5); PLATELET COUNT, AUTOMATED 282 10^3/uL (150-450); RED BLOOD COUNT 4.44 10^6/uL (4.00-5.40); WHITE BLOOD COUNT 7.5 10^3/uL (4.0-10.0)
[2025-02-26 12:20] LABS: THYROID STIMULATING HORMONE 2.421 uIU/ML (0.55-4.78); TOTAL 25(OH) VITAMIN D 19.7 NG/ML (20.0-100.0)
[2025-02-26 12:21] LABS: ALBUMIN 3.8 G/DL (3.2-5.2); BILIRUBIN,TOTAL 0.2 MG/DL (0.3-1.2); CALCIUM LEVEL 9.6 MG/DL (8.3-10.6); CHOLESTEROL RISK RATIO 4.6 (<5); CREATININE FOR GFR 1.01 MG/DL (0.55-1.30); GLOMERULAR FILTRATION RATE 58.1 (>39); HDL CHOLESTEROL 50.2 MG/DL (>40); LDL CHOLESTEROL 110.8 MG/DL (<100); NON-HDL-C 180.8 MG/DL; POTASSIUM SERUM 4.1 MMOL/L (3.5-5.1); TOTAL PROTEIN 7.1 G/DL (5.7-8.2)
== END ==
LOC: M LAB 10:29
PROVIDERS: ATTEND Family Medicine
DX: M81.0 Age-related osteoporosis without current pathological fracture (principal); E78.00 Pure hypercholesterolemia, unspecified

== ENCOUNTER → 2025-04-20 | Outpatient (CLI) | payer MEDICARE, MEDICAID | LOC: M WHC 12:00 | PROVIDERS: ATTEND Family Medicine | DX: Z12.31 Encounter for screening mammogram for malignant neoplasm of breast (principal); M81.0 Age-related osteoporosis without current pathological fracture ==

== ENCOUNTER → 2025-05-09 | Outpatient (CLI) | payer MEDICARE, MEDICAID ==
[~2025-05-09] MED LIST changes: +ACET-1515 PO; -ACET650T15 PO
== END ==
LOC: M WUC 12:51
PROVIDERS: ATTEND Family Medicine
DX: M51.369 Other intervertebral disc degeneration, lumbar region without mention of lumbar back pain or lower extremity pain (principal)

== ENCOUNTER → 2025-06-15 | Outpatient (CLI) | payer MEDICARE, MEDICAID | LOC: M WUC 11:36 | PROVIDERS: ATTEND Family Medicine | DX: M54.9 Dorsalgia, unspecified (principal); M05.9 Rheumatoid arthritis with rheumatoid factor, unspecified; M51.34 Other intervertebral disc degeneration, thoracic region ==